=== PATIENT | female | born 1945 | race Caucasian/White ===

== ENCOUNTER 2016-12-28 09:32 | Outpatient (CLI) | payer OTHER | END 2016-12-28 20:12 | disposition home or self-care (01) | LOC: SMA 09:32 | DX: Z12.31 Encounter for screening mammogram for malignant neoplasm of breast (principal) | CPT/HCPCS: G0202 ==

== ENCOUNTER 2022-07-21 20:23 | Emergency (ER) | payer OTHER ==
[~2022-07-21] VITALS: Ht 154.9 cm; Wt 72.6 kg
[2022-07-21 20:28] VITALS: BP_SYST 165
--- NOTE | 2022-07-21 20:48 | NUR ---
Triaged and placed in ER Hallway 1. VSS, no acute respiratory distress at this time. Accompanied by . Instructed to notify ED staff for any changes in condition or worsening of symptoms. Patient verbalized understanding.
--- NOTE | 2022-07-21 20:50 | NUR ---
Patient came in for head laceration on the right side of her head after a slip and fall. Denied any loss of consciousness, dizziness, blurry vision or any nausea. Patient is alert and oriented x4, respirations even and unlabored, speaking in full sentences and ambulating with a steady gait. Denied any acute distress at this time. at bedside.
--- NOTE | 2022-07-21 21:36 | NUR ---
Dr. Patel at bedside examining the patient and repairing the head laceration. Patient tolerated the procedure well.
[2022-07-21 21:49] VITALS: BP_SYST 142
--- NOTE | 2022-07-21 21:50 | NUR ---
Patient given written and verbal discharge instructions and verbalizes understanding. ER MD discussed with patient the results and treatment provided. Patient in stable condition. ID arm band removed. NO NEW Rx given. Patient educated on pain management and to follow up with PMD. Pain Scale 3/10. Opportunity for questions provided and answered. Medication side effect fact sheet provided.
== END 2022-07-21 21:49 | disposition home or self-care (01) ==
LOC: SED 20:23
DX: S01.01XA Laceration without foreign body of scalp, initial encounter (principal); Z79.899 Other long term (current) drug therapy; W01.0XXA Fall on same level from slipping, tripping and stumbling without subsequent striking against object, initial encounter; Y93.89 Activity, other specified; Y92.89 Other specified places as the place of occurrence of the external cause; Y99.8 Other external cause status
CPT/HCPCS: 99282